=== PATIENT | female | born 1980 | race Caucasian/White ===

== ENCOUNTER 2019-08-08 00:59 | Day surgery (SDC) | payer OTHER, SELFPAY ==
[2019-07-17 15:43] VITALS: BMI 43.0
[2019-08-08 09:26] VITALS: BP 129/72; PULSE 67; RESP 16; TEMP 36.7; O2SAT 99
--- NOTE | 2019-08-08 09:54 | P.PNAN_ITS ---
Anes - Initial Pre Proc Eval Procedure: Operation Date: 08/08/19 10:00 Proposed Procedures p Esophagogastroduodenoscopy - Raza Anguiano MD Date/Time: 08/08/19 09:54 Surgeon: Raza Anguiano MD Pre Op Diagnosis: Reflux Patient Data Age: 39 Gender: F Height: 5 ft 10 in Weight: 134.7 kg Last Vital Signs Temp 36.7 C 08/08/19 09:26 Pulse 67 08/08/19 09:26 Resp 16 08/08/19 09:26 BP 129/72 08/08/19 09:26 Pulse Ox 99 08/08/19 09:26 Allergies Allergy/AdvReac Type Severity Reaction Status Date / Time No Known Allergies Allergy Unverified 07/17/19 15:41 Home Medications Medication Instructions Recorded Confirmed Type citalopram 40 mg PO HS 07/17/19 07/17/19 History esomeprazole magnesium 40 mg PO QAM 07/17/19 07/17/19 History oxybutynin chloride 10 mg PO QAM 07/17/19 07/17/19 History Patient hx anesthesia problems: none Family hx anesthesia problems: none [facility] Past Medical History Medical History (Updated 08/08/19 @ 09:55 by Brendan Petersen MD) Barretts esophagus Morbid obesity Surgical History Surgical History (Updated 08/08/19 @ 09:55 by Brendan Petersen MD) History of esophagogastroduodenoscopy (EGD) Anes - Eval Final PreProcedure Day of Procedure 08/08/19 09:54 Patient weight: morbidly obese Heart: regular rate and rhythm Lungs: clear to auscultation Airway: Mallampati scale class 1 Neurological: alert and oriented Last oral intake: >/= 8 hours ASA classification: III Emergent: no Anesthetic plan: proceed Anesthesia type and monitoring: general GIVS and standard monitoring Informed Consent: The patient's anesthetic plan and its attendant risks and benefits were discussed with the patient/family/POA. Questions were solicited and answers provided to the satisfaction of the patient/family/POA.
--- NOTE | 2019-08-08 09:57 | PM.HPGS ---
History of Present Illness History of Present Illness Consent: Risks, benefits, and alternatives have been discussed and questions answered. Patient agrees to proceed with procedure. Chief complaint: Reflux Narrative: Emily Sandoval is a 39 year old W female referred for gastroscopy secondary to history of gastroesophageal reflux disease and Peter's metaplasia. 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 Patient was to return 6 months later for repeat biopsies but did not do so. She has been on Nexium 40 mg daily which controls her symptoms. [facility] Past Medical History Medical History (Updated 08/08/19 @ 09:55 by Brendan Petersen MD) Barretts esophagus Morbid obesity Surgical History Surgical History (Updated 08/08/19 @ 09:55 by Brendan Petersen MD) History of esophagogastroduodenoscopy (EGD) Meds Home Medications and Allergies Home Medications Medication Instructions Recorded Confirmed Type citalopram 40 mg PO HS 07/17/19 07/17/19 History esomeprazole magnesium 40 mg PO QAM 07/17/19 07/17/19 History oxybutynin chloride 10 mg PO QAM 07/17/19 07/17/19 History Allergies Allergy/AdvReac Type Severity Reaction Status Date / Time No Known Allergies Allergy Unverified 07/17/19 15:41 Vital Signs Vital Signs - 24 hr 08/08/19 09:26 Temperature 36.7 C Pulse Rate 67 Respiratory Rate 16 Blood Pressure 129/72 Pulse Oximetry 99 Exam Const: Orientation/consciousness: patient oriented x3 Resp: Auscultation: clear to auscultation bilaterally Cardio: Rate: regular rate Rhythm: regular rhythm Heart sounds: no murmurs GI: GI Palp: Yes Soft to palpation, No Tenderness to palpation present (GI), Yes No hepatosplenomegaly present and No Palpable mass present Auscultation: normal bowel sounds Neuro: General: patient oriented x3 and no focal motor deficits Extrem: General: no pedal edema Assessment and Plan Additional Plan Gastroscopy for evaluation of Peter's
[2019-08-08] MEDS: LACTATED RINGERS 1,000 ML 150 ML IV CONT (10:41)
[2019-08-08 10:57] VITALS: BP 109/61; PULSE 61; RESP 24; O2SAT 97
[2019-08-08 11:07] VITALS: BP 129/71; PULSE 61; RESP 19; O2SAT 97
[2019-08-08 11:17] VITALS: BP 137/90; PULSE 58; RESP 19; O2SAT 97
== END 2019-08-08 11:36 | disposition home or self-care (01) ==
PROVIDERS: Visit Provider Internal Medicine Gastroenterology
PROC: 0DJ08ZZ Inspection of Upper Intestinal Tract, Via Natural or Artificial Opening Endoscopic (ICD-10-PCS; CPT 43235; principal; 2019-08-08 10:00)
DX: K21.0 Gastro-esophageal reflux disease with esophagitis (principal); K22.70 Barrett's esophagus without dysplasia; K44.9 Diaphragmatic hernia without obstruction or gangrene; E66.01 Morbid (severe) obesity due to excess calories; Z68.41 Body mass index [BMI] 40.0-44.9, adult
CPT/HCPCS: 43239; 88305; J2704; J7120